=== PATIENT | female | born 1965 | race Caucasian/White ===

== ENCOUNTER → 2018-04-29 | Outpatient (CLI) | payer BC | END | disposition home or self-care (01) | LOC: CARD 13:00 | DX: I51.7 Cardiomegaly (principal) ==

== ENCOUNTER → 2023-02-19 | Outpatient (CLI) | payer BC | END | disposition home or self-care (01) | LOC: CARD 02-13 07:30 | PROVIDERS: ATTEND Physician Assistant Medical | DX: I05.9 Rheumatic mitral valve disease, unspecified (principal) ==

== ENCOUNTER → 2024-07-03 | Outpatient (CLI) | payer BC | END | disposition home or self-care (01) | LOC: US 06-23 15:00 | PROVIDERS: ATTEND Nurse Practitioner Family | DX: N85.8 Other specified noninflammatory disorders of uterus (principal); R10.2 Pelvic and perineal pain ==